=== PATIENT | female | born 1965 | race Caucasian/White ===

== ENCOUNTER 2017-12-14 17:15 | Emergency (ER) | payer OTHER ==
[~2017-12-14] VITALS: Ht 167.6 cm; Wt 147.9 kg
[~2017-12-14 17:15] MED LIST: AMITRIPTYLINE H25 MG PO; BENZONATATE100 MG PO; CARDIZEM CD120 MG PO; DEMEROL50 MG PO; DILTIAZEM ER240 MG PO; ESCITALOPRAM OX10 MG PO; FUROSEMIDE40 MG PO; LEVOTHYROXINE88 MCG PO; MEPERIDINE HCL50 MG PO; METFORMIN HCL500 MG PO; METOPROLOL-HCT1 EACH PO; POTASSIUM CHLO20 ME1 PO; SIMPONI50 MG/0.5 SQ; SIMVASTATIN40 MG PO; VOLTAREN100 GM TOP; ZOFRAN4 MG PO; [UNRECOGNIZED DRUG - OTHER]
[2017-12-14] MEDS ORDERED: XELJANZ XR11 MG PO (18:21)
[2017-12-14] MEDS ORDERED: GABAPENTIN300 MG PO (18:22)
[2017-12-14] MEDS ORDERED: TRIAZOLAM0.25 MG PO (18:22)
[2017-12-14] MEDS ORDERED: TEMAZEPAM30 MG PO (18:22)
--- NOTE | 2017-12-16 08:02 | EKG ---
[facility] [address] [facility] [place] [address] Signed Normal sinus rhythm Minimal voltage criteria for LVH, may be normal variant Borderline ECG When compared with ECG of 21-AUG-2016 17:06, No significant change was found Confirmed by KHUSHBU SALAZAR MD ([id number]) on 12/16/2017 8:01:59 AM Electronically Signed By: KHUSHBU SALAZAR MD 12/16/17 0802 PATIENT NAME: CORINA PATRICK Electrocardiogram DATE OF : 61 PHYSICIAN: KHUSHBU SALAZAR MD REPORT #: [id number] REPORT IS CONFIDENTIAL AND NOT TO BE RELEASED WITHOUT AUTHORIZATION
== END 2017-12-14 19:22 | disposition home or self-care (01) ==
LOC: ED 17:15
DX: E86.0 Dehydration (principal); I10 Essential (primary) hypertension; E11.9 Type 2 diabetes mellitus without complications; Z88.5 Allergy status to narcotic agent; Z88.8 Allergy status to other drugs, medicaments and biological substances; Z88.0 Allergy status to penicillin; Z88.1 Allergy status to other antibiotic agents; Z79.84 Long term (current) use of oral hypoglycemic drugs; Z79.899 Other long term (current) drug therapy
CPT/HCPCS: 80053; 83735; 84484; 85025; 93005; 93010; 99284; J7040

== ENCOUNTER 2020-11-12 11:00 | Inpatient (IN) | payer MEDICARE, OTHER ==
[~2020-11-12] VITALS: Ht 167.6 cm; Wt 148.8 kg
[~2020-11-12 11:00] MED LIST changes: +GABAPENTIN300 MG PO; +TEMAZEPAM30 MG PO; +TRIAZOLAM0.25 MG PO; +XELJANZ XR11 MG PO
--- OUTSIDE RECORDS SUMMARY | 2020-11-12 11:56 | XMS ---
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 Lissy has no Care Guidelines for this patient. Effie VISIT COUNT (12 MO.) 1 [facility] TOTAL 1 NOTE: Visits indicate total known visits. ED/C VISIT TRACKING (12 MO.) 11/12/2020 11:00 [facility] TYPE: Emergency COMPLAINT: - SOB INPATIENT VISIT TRACKING (12 MO.) No inpatient visits to display in this time frame [email or web address]
--- NOTE | 2020-11-12 17:45 | NUR ---
Patient arrives to the unit via hospital stretcher on 4L oxymask, SpO2 in the mid to upper 90's. Patient able to stand independently but states, "I feel dizzy." Patient sits at edge of bed for several minutes. Patient able to ambulate to toilet, radha urine noted. Patient returns to bed and while walking is wobbly, receives assistance from RN. Patient returns to bed with 1PA. Vital signs taken, assessment complete. PM medications given. Patient appears SOB after exertion, saturations in the 80's with ambulation. Oxygen increased to 8L for patient to recover. After several minutes patient denies SOB, oxygen returned to 4L oxymask, SpO2 remains at 97%. Dinner ordered. Dry cough noted. This RN remains in room for continuing assessment.
--- NOTE | 2020-11-12 19:30 | NUR ---
REPORT RECIEVED. CARE OF PATIENT ASSUMED AT THIS TIME. PT LAYING IN BED. CALL LIGHT WITHIN REACH AND BED ALARM IN PLACE. DENIES NEEDS AT THIS TIME.
--- NOTE | 2020-11-12 20:00 | NUR ---
ASSESSMENT COMPLETED. PT UP TO BATHROOM. UNWILLLING TO USE BSC, INSTEAD AMBULATED TO BATHROOM. HEART RATE UP INTO THE 140S, SPO2 =89%, RR=32 WITH EXERTION. PT REPORTS FEELING DIZZY AND UNSTEADY ON FEET. PT NOW BACK IN BED. RESTING HEART RATE 100 BPM. O2 SATURATIONS 91 PERCENT ON 3 L OM. LUNGS SOUND DIMINISHED IN THE UPPER AIRWAYS, CRACKLES NOTED IN BOTH BASES. PT BODY HABITUS PREVENTS HER FROM LAYING IN SIDE LYING POSITION OR PRONE. DISCUSSED PLAN OF CARE. IV FLUIDS INFUSING. MEDICATIONS ADMINISTERED. BED ALARM ON. CALL LIGHT WITHIN REACH. WILL CONTINUE TO CLOSELY MONITOR.
--- NOTE | 2020-11-12 21:30 | NUR ---
pt heart rate now in the 60-70s at rest. blood pressure 101/84. spo2 = 94% on 3 l om. pt resting wiht eyes closed. breathing even but labored rr= 25. bed alarm in place. will continue to monitor.
--- NOTE | 2020-11-12 22:30 | NUR ---
PRN temazepam administered pr pt request. pt has mild dry cough. heart rate in the 60s at rest. call light within reach. bed alarm in place. denies further needs at this time.
--- NOTE | 2020-11-12 22:34 | NUR ---
pt continue to attempt to get out of bed. pt hallucinating. states "my sister is here" pulling at picc line and santos cath. repositioned and reoriented pt at this time. wrapped picc line in coban. pt remains visible from nurses station.
--- NOTE | 2020-11-13 00:03 | NUR ---
assessment completed at this time. pt resting tilted toward left side. spo2 = 94 with [address] heart rate is in the 50s. lungs sound diminished with crackles noted in the bases. IV fluids infusing at 200 mls/hr. denies needs at this time.
--- NOTE | 2020-11-13 01:10 | NUR ---
Pt continues to sleep soundly. Heart rate 50-60 at rest. spo2 = 94% on 3 l om. respraitions even and unlabored. will continue to monitor.
--- NOTE | 2020-11-13 03:33 | NUR ---
PT CONTINUES TO REST SOUNDLY. SPO2 = 93% ON 3 L OM. HEART RATE IN THE 50S. BREATING EVEN AND UNLABORED RR= 18. BED ALARM IN PLACE. WILL CONTINUE TO MONITOR.
--- NOTE | 2020-11-13 05:25 | NUR ---
in room for assessment. pt iv was pulled out while sleeping. 20 g started in right AC at this time. labs drawn and IV fluids infusing. Pt up to bsc to void. heart rate remained wnl. spo2 decreased to 88% with exertion. pt back in bed. call light within reach. no further needs at this time.
[2020-11-13] MEDS ORDERED: ESCITALOPRAM OX20 MG PO (07:21)
[2020-11-13] MEDS ORDERED: RINVOQ ER15 MG PO (07:21)
[2020-11-13] MEDS ORDERED: BUPROPION XL150 MG PO (07:22)
[2020-11-13] MEDS ORDERED: CYCLOBENZAPRINE10 MG PO (07:24)
[2020-11-13] MEDS ORDERED: METOPROLOL SUC100 MG PO (07:26)
[2020-11-13] MEDS ORDERED: LOVASTATIN20 MG PO (07:26)
[2020-11-13] MEDS ORDERED: GABAPENTIN400 MG PO (07:27)
[2020-11-13] MEDS ORDERED: METHOTREXATE2.5 MG PO (07:28)
[2020-11-13] MEDS ORDERED: METFORMIN HCL500 M1 PO (07:28)
[2020-11-13] MEDS ORDERED: MEPERIDINE PO (07:29)
--- NOTE | 2020-11-13 07:30 | NUR ---
REPORT RECIEVED. PATIENT IS RESTFUL IN BED.
--- NOTE | 2020-11-13 08:00 | NUR ---
ASSESSMENT DONE. HAS OCC HARSH COUGH. DENEIS SHORTNESS OF BREATH. OXYMASK NOT ON PATIET AT THIS TIME. O2 SAT 93. WILL CONTINUE TO MONITOR O2 SAT, WILL APPLY O2 PRN. TALKED WITH PATIENT ABOUT POC FOR DAY, INDICATES UNDERSTANDING. ACCUCHECK 226, 5 UNITS INSULIN GIVEN.
--- NOTE | 2020-11-13 08:30 | NUR ---
MOE MEDICATIONS GIVEN. REMDESIVIR GIVEN.
--- NOTE | 2020-11-13 08:50 | NUR ---
Pt states she lives in a 1 story home with her spouse. He is also currently ill, but has not been tested. She has spoken with the [facility] and they have offered to assist them to get food when she is discharged. They do not have children other then "fur babies". She states she and her spouse both drive, will stay home and isolate with help from the Health Dept on dc. Discussed possibility of 02 on dc, but will not know until day of discharge.
--- NOTE | 2020-11-13 09:38 | NUR ---
POOR APPETITE, DENEIS PAIN. O2 SAT 90, O2 AT 2 L NC APPLIED.
--- NOTE | 2020-11-13 09:47 | NUR ---
MED REC COMPLETE
--- NOTE | 2020-11-13 10:00 | NUR ---
SPONGE BATH GIVEN, OOB TO CHAIR WHILE BED LINEN CHANGED.INCREASED SHORTNESS OF BREATH WITH EXERTION.
--- NOTE | 2020-11-13 10:30 | NUR ---
BACK TO BED W/O INCIDENT. REMAINS ON O2 AT 2 LITERS NC.
--- NOTE | 2020-11-13 11:00 | NUR ---
DR. VAN HERE TO SEE PATIENT, ORDERS RECIEVED.
--- NOTE | 2020-11-13 12:26 | NUR ---
PT ADMITTED COVID POSITIVE. CANNOT VISIT PT IN PERSON, WILL STAY AVAILABLE TO ASSIST NEED BE.
--- NOTE | 2020-11-13 12:30 | NUR ---
UP TO CHAIR. MOVES FAIR. INCREASED SHORTNESS OF BREATH WITH EXERTION. O2 REMAINS AT 2 L NC. VERY TALKATIVE.
--- NOTE | 2020-11-13 15:00 | NUR ---
HOSEA IN CHAIR. HAS BEEN TALKING ON PHONE. DENIES NEED FOR PAIN MEDICATION.
--- NOTE | 2020-11-13 17:30 | NUR ---
TYLENOL 650 MG PO GIVEN FOR GENERAL UPPER BACK PAIN. TESSLON LIZ GIVEN FOR COUGH. ACCUCHECK-236, 5 UNITS OF INSULIN GIVEN. IN ON 3 L OF O2 VIA NC. THIS WAS INCREASED TO 3 L AT TIME PATIENT RETURNED TO BED O2 SATS 87-88 ON 2 L.
--- NOTE | 2020-11-13 18:07 | NUR ---
SITTING UP IN BED TO EAT DINNER.
--- NOTE | 2020-11-13 19:18 | NUR ---
RESTING, NO CHANGES. REPORT TO MECHANIC WELDER.
--- NOTE | 2020-11-13 19:20 | NUR ---
RECEIVED REPORT FROM [facility]. pt RESTING IN BED ON PHONE. NC IN PLACE. CALL LIGHT WITHIN REACH.
--- NOTE | 2020-11-13 19:30 | NUR ---
O2 SAT DROPPED TO 84%, pt SITTING IN BED AWAKE. NC OFF. VERBAL INSTRUCTIONS GIVEN, pt ABLE TO REPLACE NC. O2 SATS INCREASED >90%. CALL LIGHT WITHIN REACH.
--- NOTE | 2020-11-13 21:30 | NUR ---
pt MOVED FROM CCU TO MED/SURG ROOM 116. pt DESATS WHEN ON ROOM AIR. ON 3L. DENIES SOB AT THIS TIME. pt FORGETFUL AT TIMES STATED "I HAVE THE MEMORY OF A GOLDFISH." DISCUSSED MEDICATIONS, GENERAL TREATMENT OF COVID AND PRONING. QUESTIONS ANSWERED. pt WILL BENEFIT FROM REPEATED TEACHING. MEDICATIONS GIVEN (SEE MAR). pt DENIES PAIN AT THIS TIME. pt RESTING IN BED WITH O2 ON. WILL CALL IF ANY NEEDS. CALL LIGHT AND POSSESSIONS WITHIN REACH.
--- NOTE | 2020-11-13 23:20 | NUR ---
O2 SAT DROPPED TO 88%. IN TO ASSESS. pt RESTING ON RIGHT SIDE, NC OFF. REPLACED. pt CONTINUED WITH REGULAR RESPIRATIONS, EYES CLOSED. CALL LIGHT WITHIN REACH. O2 SAT INCREASED TO 95% ON 3L.
--- NOTE | 2020-11-14 01:36 | NUR ---
O2 SAT 84% IN TO ASSESS. pt UP TO VOID INDEPENDENTLY. VERBALIZED UNDERSTANDING OF O2 REQUIREMENTS. ASSISTED TO REPLACE NC. UP TO 94% ON 3L O2. ASSESSMENT DONE. NO CHANGES FROM PRIOR ASSESSMENT. pt VERBALIZED UNDERSTANDING TO CALL NEXT TIME SHE NEEDS TO GET UP. CALL LIGHT WITHIN REACH.
--- NOTE | 2020-11-14 03:43 | NUR ---
ROUNDED ON pt. RESTING IN BED, RESPIRATIONS REGULAR. O2 SAT 96%. CALL LIGHT WITHIN REACH.
--- NOTE | 2020-11-14 05:15 | NUR ---
IN FOR MORNING VITALS. pt WOKE TO VOICE. ON 3L O2. DENIED NEED TO VOID. VITALS DONE. LABS DRAWN. PROVIDED FRESH WATER. pt VERBALIZED IMPORTANCE OF O2 AND PRONING. LAYING ON RIGHT SIDE. NO REQUESTS AT THIS TIME. CALL LIGHT WITHIN REACH.
--- NOTE | 2020-11-14 06:17 | NUR ---
pt RESTED MOST OF SHIFT. HAS A HISTORY OF RECENT FALLS, STEADY ON FEET WHEN GETTING UP TO VOID, WATCHED FROM DOOR. pt DOES HAVE A POOR MEMORY AND REQUIRES COACHING ON WEARING O2, ESPECIALLY WHEN AMBULATING. DESATS QUICKLY WITHOUT O2. IV SL. 60 GRAM CARB DIET. USES CALL LIGHT APPROPRIATELY.
--- NOTE | 2020-11-14 07:15 | NUR ---
SHIFT REPORT FROM MARVA JOHNSON INCLUDED: Pt had a mostly uneventful evening. Pt is SBA to bathroom, uses call light appropriately. Pt currently on 3L NC and in bed, table and call light within reach.
--- NOTE | 2020-11-14 09:00 | NUR ---
ASSESSMENT + MED PASS + INSULIN Pt CBG was 204 so 3u insulin given per sliding scale, plus 20 of lantus as ordered. Pt able to take all meds without dificulty. Pt assessment complete, VSS, denies pain and nausea at this time. Pt reports "feeling better" but still having some tightness in her chest and fatigue with movement. Pt given her breakfast and fresh water. Pt denies needs at this time. Pt in bed, sitting up, table and call light within reach.
--- NOTE | 2020-11-14 12:39 | NUR ---
INSULIN ADMIN CBG was 259, so 7 units given per sliding scale orders. Pt able to get med without difficulty. Pts lunch order on its way. Pt had juice and fresh water at bedside. Pt denies pain and nausea at this time. Pt in bed, table and call light within reach.
--- NOTE | 2020-11-14 14:25 | NUR ---
UNABLE TO VISIT PT DUE TO PRECAUTIONS. WILL FOLLOW
--- NOTE | 2020-11-14 14:45 | NUR ---
ROUNDING Pt in bed, watching tv, breathing even and unlabored. Table and call light within reach.
--- NOTE | 2020-11-14 15:37 | NUR ---
MED PASS + VITALS/Is&Os + ASSESSMENT Pt able to take med without difficulty. Pt up to bathroom. Pt able to void. Pt sputum sample collected and sent to the lab. Pt denies pain and nausea at this time. Pt back to bed, table and call light within reach. Fresh water given. Pt assessment complete, VSS, pts lungs clear. Pt denies further needs at this time. Pt in bed, table and call light within reach.
--- NOTE | 2020-11-14 15:40 | NUR ---
Pt resting in bed. No change in plan for dc.
--- NOTE | 2020-11-14 16:23 | NUR ---
ROUNDING Pt in bed, watching TV, using her Incentive Spirometer as ordered. Pt denies needs at this time. Breathing even and unlabored, o2sat 95% on 3L NC. Table and call light within reach.
--- NOTE | 2020-11-14 16:55 | NUR ---
CALLED MD VAN ABOUT MEDS [facility] pharmacist had called earlier to let me know that we no longer have meperidine. MD Van recommends that pt use/bring in her own pain meds to be varified by pharmacy to be used due to pts many med allergies. Pt being informed this evening.
--- NOTE | 2020-11-14 17:15 | NUR ---
CBG + ROUNDING Pt CBG was 268, 7units of insulin given per sliding scale orders. Pt denies pain and nausea at this time. Pt sitting up in bed, watching TV. Pt able to get meds without difficulty. Pts dinner on the way. Table and call light within reach.
--- NOTE | 2020-11-14 18:20 | NUR ---
ROUNDING Pt sitting up in bed, watching TV, breathing even and unlabored. Pt denies pain and nausea and needs at this time. Table and call light within reach.
--- NOTE | 2020-11-14 19:45 | NUR ---
PATIENT RESTING QUIETLY IN BED WATCHING TV, CALL LIGHT IN REACH, NO NEEDS AT THIS TIME.
--- NOTE | 2020-11-14 22:30 | NUR ---
PATIENT WAS HAVING 4/10 BAACK PAIN AND GIVEN 2 PO TYLENOL. PATIENT'S RAC IV WAS LEAKING AND HAD TO BE PULLED AND A NEW 22G IV WAS PLACED IN THE RFA AND PATIENT TOLERATED THIS WELL. NEW IV FLUSHES WELL AND HAS GOOD BLOOD RETURN. PATIENT'S ICE WATER REFILLED AND NEW BATTERY PLACED IN THE TELE UNIT. PATIENT HAD NO OTHER NEEDS AT THIS TIME, CALL LIGHT IN REACH.
--- NOTE | 2020-11-15 00:30 | NUR ---
PATIENT RESTING QUIETLY, RESPIRATIONS REGULAR AND EVEN, PATIENT ON HER RIGHT SIDE, EYES CLOSED, SATS 97% ON 3L/NC, CALL LIGHT IN REACH.
--- NOTE | 2020-11-15 01:05 | NUR ---
PATIENT CONTINUES TO REAT QUIETLY, EYES CLOSED, SATS 97% ON 3L/NC, CALL LIGHT IN REACH.
--- NOTE | 2020-11-15 03:05 | NUR ---
PATIENT'S SATS ARE 98% ON 3L/NC, RESPIRATIONS REGULAR AND EVEN, EYES CLOSED, CALL LIGHT IN REACH.
--- NOTE | 2020-11-15 03:53 | NUR ---
NOTED SATS 100%. TITRATED TO 2L O2 VIA NC. SATS MAINATAINED IN HIGH 90'S.
--- NOTE | 2020-11-15 05:36 | NUR ---
PATIENT HAS SLEPT WELL THROUGH THE NIGHT, O2 TITRATED FROM 3L TO 2L/NC AND REMAINS 97% SATS. RESPIRATIONS HAVE REGULAR AND EVEN. BACK PAIN AT SHIFT CHANGE WAS RELIEVED BY SOME TYLENOL. PATIENT COMFORTABLE AT THIS TIME AND HAD NO NEEDS. CALL LIGHT IS IN REACH.
--- NOTE | 2020-11-15 07:00 | NUR ---
SHIFT REPORT FROM ALISA JOHNSON INCLUDED: Pt was able to sleep through most of the night, only had to get up a few times to pee. Pt had some pain last night. Pt did require 2L NC while sleeping to due desaturations when asleep. Otherwise, pts VSS and A&O upon assessments. Pt currently in bed, breathing even and unlabored, table and call light within reach.
--- NOTE | 2020-11-15 08:30 | NUR ---
Per [address] Wilk[address]. Pt may dc tomorrow, more than likely will need 02. Asked if they could complete 02 qualifier this afternoon as CM will not be in tomorrow. Dr. Wilkerson will order.
--- NOTE | 2020-11-15 09:00 | NUR ---
ASSESSMENT + MED PASS Pt able to take all meds without difficulty. Pt denies pain but reports some dizziness, blurry vision, and nausea at this time. Pt states "I feel like if I close my eyes and fall asleep like this, I'll just fall right off the world." Pt alert and oriented x3, PERRLA, and able to swallow water without difficulty or vomitting. Pt reports that it isn't much nausea, mostly dizziness. Pt VSS, but her HR is decreased a bit to HR 52. Pt given alcohol swabs and emesis bag in case the nausea returns, and instructed to call us. Pt assessment complete, VSS, see charting for details.
--- NOTE | 2020-11-15 10:00 | NUR ---
ROUNDING Pts lab obtained by Nidia JOHNSON and sent to lab. Pt got zafran from Nidia JOHNSON as well, while she was in there due to the nausea returning. Pt denies nausea at this time, but reports still "feeling like crap" and having dizziness and blurry vision. Pt denies needs at this time. Pt in bed, breathing even and unlabored, o2sat 95% on RA, table and call light within reach.
--- NOTE | 2020-11-15 10:40 | NUR ---
No change in plan for dc.
--- NOTE | 2020-11-15 11:16 | NUR ---
C-19 RESTRICTIONS PREVENT ME FROM VISITING IN PERSON.WILL BE AVAILABLE IF NEEDED
--- NOTE | 2020-11-15 11:46 | NUR ---
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 Pt reports that vision is still blurry at this time, and pt is still dizzy. Pt just spoke with Rhea REYES about symptoms. Pts CBG was 176, 5units given per sliding scale, and 5units of regular insulin per orders. Pt denies further needs at this time. Pt in bed, table and call light within reach.
--- NOTE | 2020-11-15 12:35 | NUR ---
ROUNDING Pt lying in bed, eyes closed, breathing even and unlabored. Table and call light within reach.
--- NOTE | 2020-11-15 12:51 | NUR ---
ROUNDING + o2 ADMIN DURING NAP Pt desaturates to the high 80s (88-90) while sleeping. Pt put on 2L NC to maintain sats >90 while napping. Pt currently at 95% 2L NC. Pt denies further needs at this time. Pt in bed, table and call light within reach. Side rails up x4 (for safety from dizziness/falling), curtain open to view from hallway.
--- NOTE | 2020-11-15 14:00 | NUR ---
Notified by RT, he attempted to complete 02 qualifier. Pt declined as her "potassium" is messed up. Spoke with pt and asked if she is having symptoms and she states she is tired. We also discussed which DME company whe would like to use for 02 and she would [employer].
--- NOTE | 2020-11-15 14:17 | NUR ---
Will fu with Dr. Wilkerson to see if he cont. to plan for dc of this pt. tomorrow.
--- NOTE | 2020-11-15 14:45 | NUR ---
MED PASS + ASSESSMENT + o2 MONITORING Pt given her med per orders, without difficulty. Pt reports that she feels "about the same" as earlier. Pt agrees to get up to the bathroom. Pt able to void 250mls. Pt denies dizziness and nausea with standing and ambulation. Pt up to the chair. Pt linens changed. Pt in chair, table and call light within.
--- NOTE | 2020-11-15 15:15 | NUR ---
ROUNDING. Pt up to chair still. Pt demonstrates proper use of the I.S. to 1000 x10. Pt able to demonstrate proper use of the acapella device x10 as well. Pt o2sats range from 94-100% during these exercises on 2L NC. Pt in chair, table and call light within reach.
--- NOTE | 2020-11-15 17:46 | NUR ---
CONTAINER WASHER Pt in chair, table in front of her. Pt denies nausea and pain at this time. Pt reports that her dizziness and blurry vision is greatly reduced from before. Pt up to bathroom to void. Pt back to bed and positioned to comfort. Pt CBG was 334 so 11 units given per sliding scale order and 5 units regular given per orders. Pt able to take meds without difficulty. Pt denies further needs at this time. Pt VSS, saturations at 95% on RA at rest. Table and call light within reach.
--- NOTE | 2020-11-15 19:47 | NUR ---
PATIENT RESTING IN BED WATCHING TV, NO NEEDS AT THIS TIME. CALL LIGHT IN REACH.
--- NOTE | 2020-11-15 22:15 | NUR ---
PATIENT ASKED FOR HER RESTORIL, FLEXARIL, AND TYLENOL FOR 4/10 BACK PAIN. PATIENT REMAINS ON 2L/NC WITH SATS OF 97% AND HR=62. FRESH WATER AND 2 CUPS OF JELLO WERE GIVEN. IV FLUSHES WELL. PATIENT HAS NO OTHER NEEDS AT THIS TIME AND SHE SAYS,"I'M FEELING SO MUCH BETTER THAN I DID THIS MORNING." PATIENT HAS NO OTHER NEEDS AT THIS TIME, CALL MICHELLE IN REACH, THIS NURSE IN PAPR HOFF.
--- NOTE | 2020-11-15 23:27 | NUR ---
PATIENT CALLED AND HAD TO GO TO THE REST ROOM. THIS NURSE IN PAPR HOFF 1PA TO THE RESTROOM AND BACK TO BED, PATIENT VOIDED 1,000MLS. PATIENT REQUESTED AN AXTRA BLANKET AND PILLOW. THESE WERE GIVEN. PATIENT REQUESTED ANOTHER DIET PEPSI AND THIS WAS GIVEN WITH A CUP OF ICE. PATIENT HAS NO OTHER NEEDS AT THIS TIME AND CALL LIGHT IS IN REACH.
--- NOTE | 2020-11-16 00:46 | NUR ---
PATIENT RESTING QUIETLY, EYES CLOSED, RESPIRATIONS REGULAR AND EVEN, SAT=98% ON 2L/NC, CALL LIGHT IS IN REACH.
--- NOTE | 2020-11-16 02:17 | NUR ---
PATIENT AWAKE WATCHING TV, PATIENT HAS NO NEEDS AT THIS TIME. SATS REMAIN 97% ON 2L/NC. CALL [facility] IN REACH.
--- NOTE | 2020-11-16 03:30 | NUR ---
PATIENT RESTING QUIETLY ON HER RIGHT SIDE, EYES CLOSED, RESPIRATIONS REGULAR AND EVEN, CALL LIGHT IN REACH. SATS 93% ON 2L/NC.
--- NOTE | 2020-11-16 03:52 | NUR ---
PATIENT UP TO THE BATHROOM AND BACK TO BED INDEPENDENTLY, PATIENT GOT A LITTLE SHORT OF BREATH AND SATS DROPPED TO 84% BRIEFLY, BUT POPPED RIGHT BACK UP TO 96% ON 2L/NC. CALL LIGHT IS IN REACH.
--- NOTE | 2020-11-16 06:46 | NUR ---
JUST CAME OUT OF PATIENT'S ROOM AND TRIED 4 TIMES TO GET A LAB DRAW AND EVEN TRIED TO DRAW FROM THE IV WITHOUT SUCCESS. PATIENT SAID THE RN YESTERDAY WAS UNABLE TO DRAW BLOOD AND LAB HAD TO BE CALLED TO WRAP THE PATIENT'S ARMS IN WARM TOWELS TO GET BLOOD. LAB WAS CALLED AND THEY ARE GOING TO COME DRAW THE BLOOD. PATIENT SLEPT WELL, HAS BEEN INDEPENDENT IN THE ROOM, REMAINS ON 2L/NC AND SATS ARE 98%. PATIENT'S VS ARE STABLE AND SHE HAS NO NEEDS AT THIS TIME. CALL LIGHT IS IN REACH.
--- NOTE | 2020-11-16 07:10 | NUR ---
bedside report from Jaswinder messina, pt in [facility], lab was trying to draw blood at this time.
--- NOTE | 2020-11-16 08:52 | NUR ---
PATIENT AWAKE IN BED, BREAKFAST DELIVERED. PATIENT DECLINES WANTING TO MOVE TO CHAIR FOR BREAKFAST, REPOSITIONED IN BED. WASHCLOTH PROVIDED FOR FACE AND HANDS, WILL ENCOURAGE SHOWER TODAY. CALL LIGHT IN REACH
--- NOTE | 2020-11-16 10:09 | NUR ---
PATIENT AWAKE IN CHAIR. PATIENT USED BR, VOIDED VERY LITTLE. 2OO RESIDUAL IN BLADDER. DR CONTI IN TO SEE PATIENT, DR AWARE OF URINE SCAN. FRESH ICE WATER PROVIDED, LINENS CHANGED. CALL LIGHT IN REACH, NO OTHER NEEDS AT THIS TIME
--- NOTE | 2020-11-16 10:29 | NUR ---
RA PT FEELING BETTER SHE REPORTS, WANTING TO GO HOME, IV MEDS FUSING NOW. PT DENIES NEEDS, HAD BREAKFAST WNL - REPORTS POOR APPETITE FOOD TASTE IS OFF.. SARAHID PADILLA.
[2020-11-16] MEDS ORDERED: AMLODIPINE BESY10 MG PO (11:06)
--- NOTE | 2020-11-16 11:39 | NUR ---
PATIENT AWAKE AT SIDE OF BED. D/C VITALS AND I&OS CHARTED. PATIENT DRESSING IN PERSONAL CLOTHES, WILL CALL IS ASSISTANCE IS NEEDED. CALL LIGTH IN REACH
--- NOTE | 2020-11-16 11:55 | NUR ---
pt iv out, dc inst. printed and reviewed by pharmacy and rn verbal and printed. pt agrees, f/u appts. highlighted. pt here - o2 portable checked out from journeyman wireman and pt clear to go home. w/c to er exit to .
--- NOTE | 2020-11-16 11:59 | NUR ---
DUE TO COVID PRECAUTIONS, I HAVE BEEN UNABLE TO CONNECT WITH PT. SHE IS TO DC LATER TDAY, WILL FOLLOW NEEDED
== END 2020-11-16 12:07 | disposition home or self-care (01) | DRG 177 ==
LOC: ED 11:00 → CCU 17:01 → MS 11-13 21:00
PROVIDERS: ADMIT Student in an Organized Health Care Education/Training Program; ATTEND Student in an Organized Health Care Education/Training Program
PROC: XW033E5 Introduction of Remdesivir Anti-infective into Peripheral Vein, Percutaneous Approach, New Technology Group 5 (ICD-10-PCS; principal; 2020-11-12)
DX: U07.1 COVID-19 (principal); J12.82 Pneumonia due to coronavirus disease 2019; J96.01 Acute respiratory failure with hypoxia; M06.9 Rheumatoid arthritis, unspecified; I10 Essential (primary) hypertension; E78.5 Hyperlipidemia, unspecified; I48.0 Paroxysmal atrial fibrillation; F39 Unspecified mood [affective] disorder; E11.9 Type 2 diabetes mellitus without complications; G89.4 Chronic pain syndrome; R00.1 Bradycardia, unspecified; Z79.899 Other long term (current) drug therapy; Z79.84 Long term (current) use of oral hypoglycemic drugs; Z79.1 Long term (current) use of non-steroidal anti-inflammatories (NSAID); Z88.0 Allergy status to penicillin; Z88.5 Allergy status to narcotic agent; Z88.8 Allergy status to other drugs, medicaments and biological substances
CPT/HCPCS: 36415; 71045; 71260; 80053; 83735; 83880; 84484; 85025; 85379; 87070; 87077; 87186; 87205; 94667; 94668; 94760; 94761; 99285-25; J1100; J1650; J1815; J2405; J7050; J7121; J8540; Q9967

== ENCOUNTER 2021-07-18 04:01 | Emergency (ER) | payer MEDICARE, OTHER ==
[~2021-07-18] VITALS: Ht 167.6 cm; Wt 144.7 kg
[~2021-07-18 04:01] MED LIST changes: +AMLODIPINE BESY10 MG PO; +BUPROPION XL150 MG PO; +CYCLOBENZAPRINE10 MG PO; +ESCITALOPRAM OX20 MG PO; +GABAPENTIN400 MG PO; +LOVASTATIN20 MG PO; +MEPERIDINE PO; +METFORMIN HCL500 M1 PO; +METHOTREXATE2.5 MG PO; +METOPROLOL SUC100 MG PO; +RINVOQ ER15 MG PO
--- OUTSIDE RECORDS SUMMARY | 2021-07-18 04:04 | XMS ---
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 Effie VISIT COUNT (12 MO.) 3 [facility] TOTAL 3 NOTE: Visits indicate total known visits. ED/UCC VISIT TRACKING (12 MO.) 07/18/2021 04:02 [facility] TYPE: Emergency COMPLAINT: - MOUTH PROBLEM 07/15/2021 17:36 [facility] TYPE: Emergency COMPLAINT: - MOUTH PAIN 11/12/2020 11:00 [facility] TYPE: Emergency COMPLAINT: - SOB INPATIENT VISIT TRACKING (12 MO.) 11/12/2020 17:01 [facility] TYPE: Medical Surgical COMPLAINT: - COVID, CHANDRAKANT DIAGNOSES: - Rheumatoid arthritis, unspecified - Type 2 diabetes mellitus without complications - Allergy status to narcotic agent - snf (current) use of non-steroidal anti-inflammatories (NSAID) - COVID-19 - Hyperlipidemia, unspecified - Chronic pain syndrome - Acute respiratory failure with hypoxia - Bradycardia, unspecified - Unspecified mood [affective] disorder - Paroxysmal atrial fibrillation - Allergy status to other drugs, medicaments and biological substances - Other terminal superintendent (current) drug therapy - Allergy status to penicillin - 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
[2021-07-18] MEDS ORDERED: NYSTATIN100000 UN1 PO (05:14)
[2021-07-18] MEDS ORDERED: DILAUDID2 MG PO (05:14)
== END 2021-07-18 06:40 | disposition home or self-care (01) ==
LOC: ED 04:01
DX: B37.0 Candidal stomatitis (principal); I10 Essential (primary) hypertension; E11.9 Type 2 diabetes mellitus without complications; I48.91 Unspecified atrial fibrillation; Z88.8 Allergy status to other drugs, medicaments and biological substances; Z88.5 Allergy status to narcotic agent; Z88.0 Allergy status to penicillin; Z79.899 Other long term (current) drug therapy; Z79.84 Long term (current) use of oral hypoglycemic drugs
CPT/HCPCS: 96374; 96375; 99282-25; J1170; J2405; J7030

== ENCOUNTER 2021-07-23 18:34 | Emergency (ER) | payer MEDICARE, OTHER ==
[~2021-07-23] VITALS: Ht 167.6 cm; Wt 144.7 kg
[~2021-07-23 18:34] MED LIST changes: +DILAUDID2 MG PO; +NYSTATIN100000 UN1 PO
--- OUTSIDE RECORDS SUMMARY | 2021-07-23 18:36 | XMS ---
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 Effie VISIT COUNT (12 MO.) [address] [place] [address] TOTAL 4 NOTE: Visits indicate total known visits. ED/UCC VISIT TRACKING (12 MO.) 07/23/2021 18:35 [facility] [place] TYPE: Emergency COMPLAINT: - SKIN PROBLEM 07/18/2021 04:02 [facility] [place] TYPE: Emergency COMPLAINT: - MOUTH PROBLEM DIAGNOSES: - Candidal stomatitis - Type 2 diabetes mellitus without complications - Other specified disorders of teeth and supporting structures - Allergy status to narcotic agent - Unspecified atrial fibrillation - Allergy status to penicillin - Other roasterman (current) drug therapy - longterm (current) use of oral hypoglycemic drugs - Allergy status to other drugs, medicaments and biological substances - Essential (primary) hypertension 07/15/2021 17:36 [facility] [place] TYPE: Emergency COMPLAINT: - MOUTH PAIN 11/12/2020 11:00 [facility] [place] TYPE: Emergency COMPLAINT: - SOB INPATIENT VISIT TRACKING (12 MO.) 11/12/2020 17:01 [facility] [place] TYPE: Medical Surgical COMPLAINT: - SARAHID, CHANDRAKANT DIAGNOSES: - Rheumatoid arthritis, unspecified - Type 2 diabetes mellitus without complications - Allergy status to narcotic agent - meterman (current) use of non-steroidal anti-inflammatories (NSAID) - COVID-19 - Hyperlipidemia, unspecified - Chronic pain syndrome - Acute respiratory failure with hypoxia - Bradycardia, unspecified - Unspecified mood [affective] disorder - Paroxysmal atrial fibrillation - Allergy status to other drugs, medicaments and biological substances - Other snf (current) drug therapy - Allergy status to penicillin - longterm (current) use of oral hypoglycemic drugs - Essential (primary) hypertension [email or web address]
== END 2021-07-24 06:47 | disposition short-term general hospital (02) ==
LOC: ED 18:34
DX: N17.9 Acute kidney failure, unspecified (principal); D61.818 Other pancytopenia; K13.70 Unspecified lesions of oral mucosa; N89.8 Other specified noninflammatory disorders of vagina; I10 Essential (primary) hypertension; E11.9 Type 2 diabetes mellitus without complications; M06.9 Rheumatoid arthritis, unspecified; I48.91 Unspecified atrial fibrillation; Z20.822 Contact with and (suspected) exposure to COVID-19; Z88.5 Allergy status to narcotic agent; Z88.1 Allergy status to other antibiotic agents; Z88.8 Allergy status to other drugs, medicaments and biological substances; Z88.0 Allergy status to penicillin; Z79.899 Other long term (current) drug therapy; Z79.84 Long term (current) use of oral hypoglycemic drugs
CPT/HCPCS: 80053; 83605; 85007; 85025; 85610; 85730; 99284; C9803; U0003

== ENCOUNTER 2021-12-19 15:17 | Emergency (ER) | payer MEDICARE, OTHER ==
[~2021-12-19] VITALS: Ht 167.6 cm; Wt 142.4 kg
--- OUTSIDE RECORDS SUMMARY | 2021-12-19 15:20 | XMS ---
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 Effie VISIT COUNT (12 MO.) Surinder Solis TOTAL 4 NOTE: Visits indicate total known visits. 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 - Allergy status to penicillin - Allergy status to other drugs, medicaments and biological substances - Allergy status to other antibiotic agents - Other pancytopenia - Disorder of the skin and subcutaneous tissue, unspecified - Unspecified atrial fibrillation - Unspecified lesions of oral mucosa - Acute kidney failure, unspecified - prison (current) use of oral hypoglycemic drugs 07/18/2021 04:02 [facility] [place] TYPE: Emergency COMPLAINT: - MOUTH PROBLEM DIAGNOSES: - Candidal stomatitis - Type 2 diabetes mellitus without complications - Other specified disorders of teeth and supporting structures - Allergy status to narcotic agent - Unspecified atrial fibrillation - Allergy status to penicillin - Other alf (current) drug therapy - prison (current) use of oral hypoglycemic drugs - Allergy status to other drugs, medicaments and biological substances - Essential (primary) hypertension 07/15/2021 17:36 [facility] TYPE: Emergency COMPLAINT: - MOUTH PAIN INPATIENT VISIT TRACKING (12 MO.) 07/24/2021 07:46 [facility]idy PANDA TYPE: Medical Surgical DIAGNOSES: - Type 2 diabetes mellitus with diabetic nephropathy - Acute kidney failure, unspecified - Franco-Te syndrome - Acute renal failure - Chest pain, unspecified - Rheumatoid arthritis with rheumatoid factor, unspecified - Oral mucositis (ulcerative), unspecified - Other forms of stomatitis [id number]
== END 2021-12-19 17:25 | disposition home or self-care (01) ==
LOC: ED 15:17
DX: E11.65 Type 2 diabetes mellitus with hyperglycemia (principal); I10 Essential (primary) hypertension; E11.9 Type 2 diabetes mellitus without complications; M06.9 Rheumatoid arthritis, unspecified; I48.91 Unspecified atrial fibrillation; Z88.5 Allergy status to narcotic agent; Z88.8 Allergy status to other drugs, medicaments and biological substances; Z88.0 Allergy status to penicillin; Z79.899 Other long term (current) drug therapy; Z79.84 Long term (current) use of oral hypoglycemic drugs
CPT/HCPCS: 80053; 85025; 99283; J1815; J7030

== ENCOUNTER 2022-10-24 11:08 | Emergency (ER) | payer MEDICARE, OTHER ==
[~2022-10-24] VITALS: Ht 167.6 cm; Wt 142.4 kg
[~2022-10-24 11:08] MED LIST changes: +BELBUCA300 MCG
--- OUTSIDE RECORDS SUMMARY | 2022-10-24 12:07 | XMS ---
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 Effie VISIT COUNT (12 MO.) [address] [place] [address] TOTAL 4 NOTE: Visits indicate total known visits. ED/UCC VISIT TRACKING (12 MO.) 10/24/2022 11:09 [facility] [place] TYPE: Emergency COMPLAINT: - BODY ACHES 10/16/2022 15:48 [facility] [place] TYPE: Emergency COMPLAINT: - COLD SYMPTOMS, NERVE PAIN 02/18/2022 10:52 [facility] [place] TYPE: Emergency COMPLAINT: - R SHOULDER/CHEST INJURY 12/19/2021 15:[address] [facility] TYPE: Emergency COMPLAINT: - BLOOD SUGAR PROBLEM DIAGNOSES: - Essential (primary) hypertension - Allergy status to other drugs, medicaments and biological substances - Type 2 diabetes mellitus without complications - Allergy status to penicillin - intermediate accountant (current) use of oral hypoglycemic drugs - Type 2 diabetes mellitus with hyperglycemia - Rheumatoid arthritis, unspecified - Unspecified atrial fibrillation - OTHER POLYURIA - Other longterm (current) drug therapy - Other polyuria - Allergy status to narcotic agent INPATIENT VISIT TRACKING (12 MO.) No inpatient visits to display in this time frame [email or web address]
[2022-10-24] MEDS ORDERED: FARXIGA10 MG PO (13:59)
[2022-10-24] MEDS ORDERED: K-TAB ER20 MEQ PO (14:13)
[2022-10-24] MEDS ORDERED: PREDNISONE20 MG PO (14:13)
== END 2022-10-24 14:45 | disposition home or self-care (01) ==
LOC: ED 11:08
DX: M06.9 Rheumatoid arthritis, unspecified (principal); E87.6 Hypokalemia; E11.9 Type 2 diabetes mellitus without complications; I10 Essential (primary) hypertension; Z79.899 Other long term (current) drug therapy; Z20.822 Contact with and (suspected) exposure to COVID-19
CPT/HCPCS: 36415; 80053; 85025; 87502; 96374; 99283-25; A9270; J1885; J7512; U0003